=== PATIENT | female | born 1985 | race Caucasian/White ===

== ENCOUNTER 2017-03-06 15:39 | Observation (INO) | payer OTHER ==
[~2017-03-06] VITALS: Ht 160 cm; Wt 81.8 kg
[2017-03-06 15:47] VITALS: Ht 160 cm; Wt 81.8 kg
[2017-03-06] MEDS ORDERED: FENTAnyl 50 MCG/ML VIAL IV ONE (16:00)
[2017-03-06 16:40] LABS: BASOPHILS % 0.6 % (0.0-2.0); EOSINOPHILS # 0.1 10^3/ul (0.0-0.5); EOSINOPHILS % 1.2 % (0.0-7.0); HEMATOCRIT 28.1 % (37.0-47.0); HEMOGLOBIN 8.8 g/dl (12.0-16.0); LYMPHOCYTES # 2.8 10^3/ul (0.8-2.9); LYMPHOCYTES % 41.7 % (15.0-51.0); MEAN CORPUSCULAR HEMOGLOBIN 26.6 pg (29.0-33.0); MEAN CORPUSCULAR HGB CONC 31.3 g/dl (32.0-37.0); MEAN CORPUSCULAR VOLUME 84.9 fl (82.0-101.0); MEAN PLATELET VOLUME 9.9 fl (7.4-10.4); MONOCYTE # 0.4 10^3/ul (0.3-0.9); MONOCYTES % 5.9 % (0.0-11.0); NEUTROPHIL # 3.4 10^3/ul (1.6-7.5); NEUTROPHILS % 50.4 % (39.0-77.0); PLATELET COUNT 302 10^3/UL (140-415); RED BLOOD COUNT 3.31 10^6/ul (4.20-5.40); RED CELL DISTRIBUTION WIDTH 13.2 % (11.5-14.5); WHITE BLOOD COUNT 6.6 10^3/ul (4.8-10.8)
[2017-03-06 17:05] LABS: INR 0.91; PROTIME 12.3 Sec (12.2-14.2)
[2017-03-06 17:06] LABS: PARTIAL THROMBOPLASTIN TIME 29.7 Sec (25.0-35.0)
[2017-03-06 17:21] LABS: ALBUMIN 3.4 g/dl (3.3-4.9); ALBUMIN/GLOBULIN RATIO 1.13; BILIRUBIN,INDIRECT 0.2 mg/dl (0-1.1); BILIRUBIN,TOTAL 0.2 mg/dl (0.2-1.3); CALCIUM 8.4 mg/dl (8.4-10.2); CREATININE 0.59 mg/dl (0.44-1.00); POTASSIUM 4.3 mmol/L (3.5-5.1); TOTAL PROTEIN 6.4 g/dl (6.1-8.1)
--- NOTE | 2017-03-06 19:43 | HP ---
Date/Time of Note Date/Time of Note DATE: 03/06/17 TIME: 19:38 Assessment/Plan VTE Prophylaxis VTE Prophylaxis Intervention: ambulation Lines/Catheters IV Catheter Type (from [facility]): Peripheral IV Central line still needed: No Urinary Cath still in place: No Assessment/Plan Chief Complaint/Hosp Course Menorrhagia, severe. Problems: Assessment/Plan A: Menorrhagia, severe. P: Need to evaluate the uterus for adenomyosis as was told she needs an MRI for this and despite the heavy bleeding she wants to get that study first before proceeding to a procedure. Will transfuse as needed. HPI/ROS Admit Date/Time Admit Date/Time Mar 06, 2017 Hx of Present Illness 31 y.o. with a h/o regular but prolonged periods for 7-8 days and q 6 months with a very heavy flow, came to the ER today due to the passage of very large handful sized clots, and reportedly filling a diaper q 2 hours. Pt went to her GP about a month ago due to increasingly heavy periods and had an US and was told she had a "mass in her uterus" and was given Provera and referred to a PACKAGE SEALER within her HMO network. She then saw the PACKAGE SEALER who told her to stop the provera as she has adenomyosis and that she needs an MRI and a biopsy.Pt was seen initially at [facility] and transferred here due to the bleeding. Her Hgb initially was over 10 and then dropped to 9.4 and now is 8.8. She was also given a dose of Megace today. She does not want to do any procedures including a D and C until she knows what a pelvic MRI says as she has been getting some conflicting information and was told she needed one. ROS Genitourinary: bleeding PMH/Family/Social Past Medical History Pt has tried OCP's in the past and Provera and had issues with depression and bloating. Is not in a relationship at this time but is not ready to eliminate the possibility of future children. Medical History: no pertinent history (other than the heavy periods.) Past Surgical History Past Surgical Hx: no surgical history Family History Significant Family History: no pertinent family hx Social History Smoking Status: Never smoker Drug Use: none Exam/Review of Systems Vital Signs Vitals Vital Signs Date Time Temp Pulse Resp B/P Pulse Ox O2 Delivery O2 Flow Rate FiO2 03/06/17 17:29 103 18 129/71 03/06/17 15:47 99.1 100 Exam Genitourinary - Female: other (Large fist-sized clot sitting at the entroitus.) Labs Result Diagram: 03/06/17 1545 03/06/17 1545 SUZIE CR MD Mar 06, 2017 19:43
--- NOTE | 2017-03-06 19:44 | ERA ---
ER Documentation Chief Complaint Date/Time DATE: 03/06/17 TIME: 15:35 Chief Complaint heavy vaginal bleeding x2 days large "fist size clots" since midnight HPI 31-year-old female with a history of adenomyosis transferred to the ED from [facility] for higher level of care, [facility]MENT ST[facility] management. Patient presented there complaining of worsening vaginal bleeding over the last week she was passing clots. Patient has had a one-month history of similar symptoms and was treated with Depo-Provera without relief. Complains of feeling dizzy and lightheaded but denies chest pain, palpitations or shortness of breath. Mild, crampy, lower abdominal pain. Denies hematemesis, hematochezia or melanotic stools. No fevers or chills. Patient was treated with Megace and received 2 L of intravenous fluids. Despite this she had a hemoglobin decreased from 10.8 g/dL to 9.4 g/dL. ROS All systems reviewed and are negative except as per history of present illness. Medications Home Meds No Active Prescriptions or Reported Meds Allergies Allergies: Coded Allergies: No Known Allergy (Unverified , 03/06/17) PMhx/Soc Reviewed in chart. As per HPI. Medical and Surgical Hx: pt denies Medical Hx, pt denies Surgical Hx Hx Alcohol Use: Yes (wine on occassion) Hx Substance Use: No Hx Tobacco Use: No Smoking Status: Never smoker FmHx No stroke or cancer Physical Exam Vitals Vital Signs Date Time Temp Pulse Resp B/P Pulse Ox O2 Delivery O2 Flow Rate FiO2 03/06/17 19:01 94 17 101/81 100 03/06/17 17:29 103 18 129/71 03/06/17 15:47 99.1 97 12 131/78 100 Physical Exam Const: Alert, anxious, moderate distress Head: Atraumatic Eyes: Normal Conjunctiva ENT: Normal External Ears, Nose and Mouth. Neck: Full range of motion. Nontender Resp: Clear to auscultation bilaterally Cardio: Regular rate and rhythm, no murmurs Abd: Soft, non tender, non distended. Normal bowel sounds Skin: No petechiae or rashes Back: No midline or flank tenderness Ext: No cyanosis, or edema Neur: Awake and alert Psych: Normal Mood and Affect Result Diagram: 03/06/17 1545 03/06/17 1545 Results 24 hrs Laboratory Tests Test 03/06/17 15:45 White Blood Count 6.610^3/ul Red Blood Count 3.3110^6/ul Hemoglobin 8.8g/dl Hematocrit 28.1% Mean Corpuscular Volume 84.9fl Mean Corpuscular Hemoglobin 26.6pg Mean Corpuscular Hemoglobin Concent 31.3g/dl Red Cell Distribution Width 13.2% Platelet Count 32882^3/UL Mean Platelet Volume 9.9fl Neutrophils % 50.4% Lymphocytes % 41.7% Monocytes % 5.9% Eosinophils % 1.2% Basophils % 0.6% Nucleated Red Blood Cells % 0.0/100WBC Neutrophils # 3.410^3/ul Lymphocytes # 2.810^3/ul Monocytes # 0.410^3/ul Eosinophils # 0.110^3/ul Basophils # 0.010^3/ul Nucleated Red Blood Cells # 0.010^3/ul Prothrombin Time 12.3Sec Prothrombin Time Ratio 1.0 INR International Normalized Ratio 0.91 Activated Partial Thromboplast Time 29.7Sec Sodium Level 140mmol/L Potassium Level 4.3mmol/L Chloride Level 109mmol/L Carbon Dioxide Level 24mmol/L Anion Gap 11 Blood Urea Nitrogen 8mg/dl Creatinine 0.59mg/dl Glucose Level 104mg/dl Calcium Level 8.4mg/dl Total Bilirubin 0.2mg/dl Direct Bilirubin 0.00mg/dl Indirect Bilirubin 0.2mg/dl Aspartate Amino Transf (AST/SGOT) 24IU/L Alanine Aminotransferase (ALT/SGPT) 33IU/L Alkaline Phosphatase 63IU/L Total Protein 6.4g/dl Albumin 3.4g/dl Globulin 3.00g/dl Albumin/Globulin Ratio 1.13 Beta HCG, Quantitative < 2.4mIU/ml Current Medications Medications (Trade) Dose Ordered Sig/Shabnam Route PRN Reason Start Time Stop Time Status Last Admin Dose Admin Fentanyl 25 mcg 25 mcg ONCE ONCE IV 03/06/17 16:00 03/06/17 16:01 Cancel Lactated Ringer's (Lr) 1,000 ml @ 125 mls/hr Q8H IV 03/06/17 19:30 03/06/17 20:09 Procedures/MDM DOCUMENTS REVIEWED: ED nurse, no prior records available PROCEDURES: [] ED COURSE: [] REEXAMINATION/REEVALUATION: Time:[] MEDICAL DECISION MAKIN-year-old female with a history of adenomyosis transferred to the ED from [facility] for higher level of care, OB/ BLACK STUDIES PROFESSOR management of vaginal bleeding. Differential includes but is not limited to neoplasm, menometrorrhagia, adenomyosis, uterine fibroids, ectopic , threatened or completed . test is negative. Ongoing bleeding and hemoglobin now decreased to 8.8 g/dL from 9.4 g/dL. Patient seen and evaluated in the emergency department by ORNAMENT STAPLER, Dr. Milner. Patient be admitted to [facility] for further evaluation including MRI, D&C and possible transfusion. Counseled [patient and family] regarding diagnosis, diagnostic results and plan for admission. CALLS/CONSULTS: Time 16:00, Dr. Milner, Recommends Admission for observation, possible blood transfusion and D&C. CALLS/CONSULTS: Time 19:00, Dr. Edwards, Recommends Admission to [facility]. PATIENT CARE TRANSITIONED: Time: 19:15, Dr. Milner. Departure Diagnosis: Primary Impression: Vaginal bleeding Additional Impressions: Menometrorrhagia Anemia Qualified Code: D64.9 - Anemia, unspecified type Adenomyosis Condition: Serious DANA WAGNER MD Mar 06, 2017 19:44
[2017-03-06] MEDS ORDERED: HYDROmorphONE 1 MG/ML SYG IV ONE (20:06)
[2017-03-06] MEDS: LACTATED RINGER'S 1,000 ML IV SCH ×2 (20:09→22:24)
[2017-03-06 20:19] VITALS: PULSE 93
--- NOTE | 2017-03-06 20:48 | QN ---
Documentation Comment Spoke to patient regarding treatment for her bleeding. Patient took ocps in her teens, had weight gain. Recently had depression on provera. Discussed restarting ocps vs d&c. Patient would like trial of ocps. Questions answered. Awaiting MRI. Ocp taper ordered. AMBROSIO HUGO. Mar 06, 2017 20:48
[2017-03-06] MEDS: NORETHINDRONE-ETHINYL ESTR 0.5-35 TAB PO SCH ×2 (21:00→23:00)
[2017-03-06 21:31] VITALS: BP 108/61; RESP 22
[2017-03-07 03:01] VITALS: BP 107/59; RESP 20
[2017-03-07] MEDS: LACTATED RINGER'S 1,000 ML IV SCH ×2 (04:15→13:20)
[2017-03-07 05:59] LABS: ABNORMAL IP MESSAGE 1; BASOPHILS % 0.1 % (0.0-2.0); EOSINOPHILS # 0.1 10^3/ul (0.0-0.5); EOSINOPHILS % 0.7 % (0.0-7.0); HEMATOCRIT 20.5 % (37.0-47.0); LYMPHOCYTES # 2.1 10^3/ul (0.8-2.9); MEAN CORPUSCULAR HEMOGLOBIN 26.9 pg (29.0-33.0); MEAN CORPUSCULAR HGB CONC 31.7 g/dl (32.0-37.0); MEAN CORPUSCULAR VOLUME 84.7 fl (82.0-101.0); MEAN PLATELET VOLUME 10.3 fl (7.4-10.4); MONOCYTE # 0.4 10^3/ul (0.3-0.9); MONOCYTES % 5.4 % (0.0-11.0); NEUTROPHIL # 4.4 10^3/ul (1.6-7.5); NEUTROPHILS % 63.7 % (39.0-77.0); PLATELET COUNT 239 10^3/UL (140-415); RED BLOOD COUNT 2.42 10^6/ul (4.20-5.40); RED CELL DISTRIBUTION WIDTH 13.2 % (11.5-14.5); WHITE BLOOD COUNT 6.9 10^3/ul (4.8-10.8)
[2017-03-07 06:13] LABS: HEMOGLOBIN 6.5 g/dl (12.0-16.0); POSITIVE DIFF @See below
[2017-03-07 07:46] VITALS: BP 104/55; RESP 18
[2017-03-07] MEDS ORDERED: ONDANSETRON 4 MG INJ IV STA (09:01)
[2017-03-07 10:54] LABS: ABNORMAL IP MESSAGE 1; BASOPHILS % 0.3 % (0.0-2.0); EOSINOPHILS # 0.1 10^3/ul (0.0-0.5); EOSINOPHILS % 0.8 % (0.0-7.0); HEMATOCRIT 20.1 % (37.0-47.0); LYMPHOCYTES # 1.8 10^3/ul (0.8-2.9); LYMPHOCYTES % 24.6 % (15.0-51.0); MEAN CORPUSCULAR HEMOGLOBIN 26.3 pg (29.0-33.0); MEAN CORPUSCULAR HGB CONC 31.3 g/dl (32.0-37.0); MEAN CORPUSCULAR VOLUME 83.8 fl (82.0-101.0); MEAN PLATELET VOLUME 9.9 fl (7.4-10.4); MONOCYTE # 0.3 10^3/ul (0.3-0.9); MONOCYTES % 3.9 % (0.0-11.0); NEUTROPHIL # 5.2 10^3/ul (1.6-7.5); NEUTROPHILS % 70.1 % (39.0-77.0); PLATELET COUNT 237 10^3/UL (140-415); RED CELL DISTRIBUTION WIDTH 13.2 % (11.5-14.5); WHITE BLOOD COUNT 7.4 10^3/ul (4.8-10.8)
[2017-03-07 11:12] LABS: HEMOGLOBIN 6.3 g/dl (12.0-16.0); POSITIVE DIFF @See below
[2017-03-07] MEDS ORDERED: ALPRAZOLAM 0.25 MG TAB PO ONE (12:00)
--- NOTE | 2017-03-07 15:23 | QN ---
Documentation Comment pt feeling slightly dizzy states minimal bleeding today vss exam wnl MRI pending a/p 31 with Menorrhagia hh down to 6.3 today but pt with mimimal bleeding transfuse 2 units MRI pending tsh cbc prolactin in am continue care YUSEF GOMES MD Mar 07, 2017 15:23
--- NOTE | 2017-03-07 17:13 | RADRPT ---
PROCEDURE: MR Pelvis without contrast. CLINICAL INDICATION: Severe menorrhagia. Possible adenomyosis. Vaginal bleeding TECHNIQUE: MRI of the pelvis was performed on the Cathleen high field MRI scanner. The patient was sc anned without IV contrast. Images were reviewed on a high-resolution PACS workstation. COMPARISON: Pelvic ultrasound 03/06/2017 performed at [facility]. FINDINGS: The uterus is normal in size, position, and morphology. The uterus is mildly displaced to the left s maryam due to mass effect from the bladder which is distended. Otherwise, the uterus is unremarkable. T he endometrium is thin and normal. The endomyometrial junctional zone is equally thin and normal. There is no evidence for adenomyosis. Small Nabothian cysts are seen within the upper cervical canal . The appearances are consistent with the findings of the recent prior ultrasound. The ovaries are located high within the upper pelvis and the left ovary is normal. There is a large dominant cyst within the right ovary measuring approximately 3.3 cm in maximal dimension. Again, a c yst was seen in the right ovary on the prior ultrasound and the appearances are grossly stable over time. No adnexal solid mass lesion is seen. The bladder is distended but otherwise unremarkable. No bladder wall thickening is identified. The sigmoid colon and rectum are unremarkable. The perirectal and presacral spaces are clear. The pelvic sidewalls and inguinal groin regions are unremarkable. No pelvic mass or lymphadenopathy is present . The surrounding soft tissues and osseous structures are normal. IMPRESSION: 1. Small benign cervical Nabothian cysts. 2. Benign cyst in the right ovary. 3. Normal appearance of the uterus and endometrium. 4. The remainder of the pelvis is unremarkable. 5. Consistent findings compared to the prior ultrasound. RPTAT: PP .Thomas Grant MD, MD Date Time Electronically viewed and signed by .Thomas Grant MD, MD on 03/07/2017 17:12 .B/
[2017-03-07 19:10] VITALS: BP 97/59; RESP 20
[2017-03-07] MEDS ORDERED: HYDROCODONE/APAP (5/325) TAB PO PRN ×2 (20:30)
[2017-03-07] MEDS ORDERED: ONDANSETRON 4 MG INJ IV PRN (20:30)
[2017-03-07] MEDS: NORETHINDRONE-ETHINYL ESTR 0.5-35 TAB PO SCH (21:00)
[2017-03-08] MEDS: LACTATED RINGER'S 1,000 ML IV SCH ×2 (03:30→11:42)
[2017-03-08] MEDS: NORETHINDRONE-ETHINYL ESTR 0.5-35 TAB PO SCH (04:12)
[2017-03-08 06:01] LABS: BASOPHILS % 0.5 % (0.0-2.0); EOSINOPHILS # 0.1 10^3/ul (0.0-0.5); HEMATOCRIT 26.3 % (37.0-47.0); HEMOGLOBIN 8.4 g/dl (12.0-16.0); LYMPHOCYTES # 3.1 10^3/ul (0.8-2.9); LYMPHOCYTES % 39.6 % (15.0-51.0); MEAN CORPUSCULAR HEMOGLOBIN 27.5 pg (29.0-33.0); MEAN CORPUSCULAR HGB CONC 31.9 g/dl (32.0-37.0); MEAN CORPUSCULAR VOLUME 85.9 fl (82.0-101.0); MEAN PLATELET VOLUME 10.5 fl (7.4-10.4); MONOCYTE # 0.5 10^3/ul (0.3-0.9); MONOCYTES % 5.9 % (0.0-11.0); NEUTROPHIL # 4.2 10^3/ul (1.6-7.5); NEUTROPHILS % 52.6 % (39.0-77.0); PLATELET COUNT 248 10^3/UL (140-415); RED BLOOD COUNT 3.06 10^6/ul (4.20-5.40); RED CELL DISTRIBUTION WIDTH 14.6 % (11.5-14.5); WHITE BLOOD COUNT 7.9 10^3/ul (4.8-10.8)
[2017-03-08 07:56] VITALS: BP 108/60; RESP 18
--- NOTE | 2017-03-08 12:31 | PD.PPDC ---
CREAM DUMPER Discharge Instruction Condition Patient Condition: Stable Diet Diet: Resume Regular Diet Activity/Restrictions Activity: Normal Activity Restrictions: No Sexual Activity Nothing in the Vagina No [place] No Tampons, douche Follow-up Follow-up with Physician: 2, Week/Weeks Provider Information: follow up with your OBGYn in 1-2 weeks for follow up Return to clinic for RECORDS MANAGEMENT ENGINEER Instructions: Worsening abdominal pain Excessive Vaginal Bleeding YUSEF GOMES MD Mar 08, 2017 12:31
--- NOTE | 2017-03-09 07:12 | DS ---
DATE OF ADMISSION: 03/06/2017 DATE OF DISCHARGE: 03/08/2017 DISCHARGE DIAGNOSES: 1. Acute onset menorrhagia. 2. Transfusion of 2 units of packed red blood cells. HISTORY AND HOSPITAL COURSE: The patient is a 31-year-old who was had heavy bleeding at this last ycle and was transferred from an outside facility to the office for further assessment. Upon admiss ion, patient had some vaginal bleeding, was seen by the SENIOR MANAGER [facility]. The patient at that time did not wa nt a D and C done at that time. Patient was then started on oral contraceptive pills. The patient' s hemoglobin was 8.8, went down 6.5 down to 6.3 and patient was feeling symptomatic. At this point the patient was transfused 2 units of packed red blood cells. The patient starting at 10:15 has had minimal bleeding, only some spotting at the most, and is currently stable. The patient's thyroid w as checked, which was within normal limits. MRI was done which showed no intrauterine abnormalities . DISCHARGE PHYSICAL EXAMINATION: VITAL SIGNS: Stable. HEART: Regular rhythm. LUNGS: Clear to auscultation bilaterally. ABDOMEN: Soft, nontender, no rebound or guarding. EXTREMITIES: There is no edema. The patient tolerating p.o., is ambulating, is passing gas, has had a bowel movement. Patient is di scharged home with Colace, Ortho-Novum 135 and some iron. The patient instructed to follow up with SENIOR MANAGER [facility] within 1 to 2 weeks for further evaluation and management of her acute onset menorrhagia. Dictated By: YUSEF GOMES MD /BLANCA Conf#: [id number] DID#: [id number]
[2017-03-09] MEDS ORDERED: NORETHINDRONE-ETHINYL ESTR 0.5-35 TAB PO SCH (21:00)
[2017-03-12] MEDS ORDERED: NORETHINDRONE-ETHINYL ESTR 0.5-35 TAB PO SCH (21:00)
== END 2017-03-08 14:29 | disposition home or self-care (01) ==
LOC: E/R 15:39 → MS1 19:37
PROVIDERS: ADMIT Obstetrics & Gynecology; ATTEND Obstetrics & Gynecology
DX: N93.9 Abnormal uterine and vaginal bleeding, unspecified (principal); N92.1 Excessive and frequent menstruation with irregular cycle; D64.9 Anemia, unspecified
CPT/HCPCS: 36430; 72195; 80053; 84146; 84443; 84702; 85025; 85610; 85730; 86644; 86850; 86900; 86901; 86920; 96361; 96374; 99285; G0378; J1170; J2405; J7120; P9016